=== PATIENT | female | born 1960 | race Caucasian/White ===

== ENCOUNTER → 2017-08-16 | Emergency (ER) | payer OTHER ==
[~2017-08-16] VITALS: Ht 165.1 cm; Wt 56.7 kg
== END | disposition left against medical advice (07) ==
LOC: ER 20:23
DX: Z53.20 Procedure and treatment not carried out because of patient's decision for unspecified reasons (principal)

== ENCOUNTER 2020-11-26 08:24 | Outpatient (CLI) | payer OTHER | END 2020-11-26 08:38 | disposition home or self-care (01) | LOC: MAMO-SONO 08:24 | PROVIDERS: ATTEND Obstetrics & Gynecology | DX: N64.51 Induration of breast (principal) ==

== ENCOUNTER 2021-03-07 08:14 | Outpatient (CLI) | payer OTHER | END 2021-03-07 15:06 | disposition home or self-care (01) | LOC: RAD 08:14 | PROVIDERS: ATTEND Physical Medicine & Rehabilitation | DX: M25.579 Pain in unspecified ankle and joints of unspecified foot (principal) ==

== ENCOUNTER 2024-05-25 10:45 | Outpatient (CLI) | payer OTHER | END 2024-05-25 10:58 | disposition home or self-care (01) | LOC: MAMO-SONO 10:45 | PROVIDERS: ATTEND Obstetrics & Gynecology | DX: N64.51 Induration of breast (principal) ==